=== PATIENT | male | born 2005 | race Caucasian/White ===

== ENCOUNTER 2024-09-29 07:28 | Emergency (ER) | payer OTHER, SELFPAY ==
[2024-09-29 07:28] VITALS: BMI 22.0
[2024-09-29 07:31] VITALS: BP 162/94
--- NOTE | 2024-09-29 08:15 | ED.GENMED ---
History of Present Illness
<Lauren Rich MD, Resident - Last Filed: 09/29/24 11:51>
General
Chief Complaint: Abdominal Symptoms
Source: patient and family
Time Seen by Provider: 09/29/24 07:38
History of Present Illness
History of Present Illness:
This is a 19-year-old male patient with no significant PMH who presents to the ED accompanied by his mother for concern of abdominal pain. He states that he started to have abdominal pain on Sunday that was intermittent, radiating to the back
and associated with nausea. He denies any chills, vomiting or chest pain. A week before the appearance of his abdominal pain, he experienced cold-like symptoms such as sore throat, fever and cough which all subsided without medication but due to
feeling severely nauseous and weak, he had hit his head against the wall. He denies any severe trauma or lacerations to his head but does have mild dizziness. He denies any history of recent travel or diarrhea. He is not currently on any daily
medications. He is currently a college student at [employer].
Past History
<Lauren Rich MD, Resident - Last Filed: 09/29/24 11:51>
Past History
ED Past Medical History: None
ED Past Surgical History: Tonsilectomy and Other (Deviated septum repair, wisdom teeth removal)
Social History
Tobacco: Non-smoker
Alcohol: None
Drug: None
Employment: Student
Review of Systems
<Lauren Rich MD, Resident - Last Filed: 09/29/24 11:51>
Review of Systems
Constitutional: Denies fever or chills
EENT: Reports sore throat
Respiratory: Denies cough
Cardiac: Denies chest pain or palpitations
ABD/GI: Reports abdominal pain and nausea; Denies diarrhea or constipated
Phy Exam
<Lauren Rich MD, Resident - Last Filed: 09/29/24 11:51>
General Physical Exam
General Presentation: well appearing and no apparent distress
Cardiovascular Exam
Cardiovascular Exam: regular rate/rhythm and no murmur
Heart Sounds: normal
Pulmonary Exam
Pulmonary Exam: lungs clear, no respiratory distress and no crackles
Gastrointestinal Exam
Gastrointestinal Exam: soft, non distended and tender (Tenderness in RLQ)
Neurological Exam
Neurological Exam: oriented x3
Musculoskeletal Exam
Musculoskeletal Exam: no edema
Skin Exam
Skin Exam: warm/dry
Psychiatric Exam
Psychiatric Exam: normal mood/affect
Course
<Lauren Rich MD, Resident - Last Filed: 09/29/24 11:51>
Orders/Labs/Results
Orders:
Orders
09/29/24 08:07
Complete Blood Count/With Diff Urgent
Comprehensive Metabolic Panel Urgent
Lipase Urgent
Manual Differential Urgent
09/29/24 08:08
Urinalysis Reflex To Culture Urgent
Date Specimen was Collected: 09/29/24
Time Specimen was Collected: 08:08
09/29/24 08:12
Iohexol [Omnipaque] See Protocol PO NOW STA
09/29/24 08:13
CT Abd/pel W Iv And Oral Contr Urgent
Comment:
Reason For Exam: RLQ abdominal pain
09/29/24 08:36
Monotest Urgent
Abnormal Lab Results
09/29/24
08:07
RBC 4.60 L 10^6/uL
(4.70-6.10)
09/29/24 08:07
09/29/24 08:07
Vital Signs
Initial and Last Documented VS:
Initial Vital Signs
Temp Pulse Resp BP Pulse Ox
98.0 F 102 16 162/94 98
09/29/24 07:31 09/29/24 07:31 09/29/24 07:31 09/29/24 07:31 09/29/24 07:31
Last Documented Vital Signs
Temp Pulse Resp BP Pulse Ox
98.0 F 64 16 125/76 100
09/29/24 07:31 09/29/24 09:33 09/29/24 10:00 09/29/24 09:33 09/29/24 09:33
<Trae Moore, DO - Last Filed: 09/29/24 08:20>
Orders/Labs/Results
Orders:
Orders
09/29/24 08:07
Complete Blood Count/With Diff Urgent
Comprehensive Metabolic Panel Urgent
Lipase Urgent
Manual Differential Urgent
09/29/24 08:08
Urinalysis Reflex To Culture Urgent
Date Specimen was Collected: 09/29/24
Time Specimen was Collected: 08:08
09/29/24 08:12
Iohexol [Omnipaque] See Protocol PO NOW STA
09/29/24 08:13
CT Abd/pel W Iv And Oral Contr Urgent
Comment:
Reason For Exam: RLQ abdominal pain
09/29/24 08:36
Monotest Urgent
Abnormal Lab Results
09/29/24
08:07
RBC 4.60 L 10^6/uL
(4.70-6.10)
09/29/24 08:07
09/29/24 08:07
Vital Signs
Initial and Last Documented VS:
Initial Vital Signs
Temp Pulse Resp BP Pulse Ox
98.0 F 102 16 162/94 98
09/29/24 07:31 09/29/24 07:31 09/29/24 07:31 09/29/24 07:31 09/29/24 07:31
Last Documented Vital Signs
Temp Pulse Resp BP Pulse Ox
98.0 F 64 16 125/76 100
09/29/24 07:31 09/29/24 09:33 09/29/24 10:00 09/29/24 09:33 09/29/24 09:33
<Lauren Rich MD, Resident - Last Filed: 09/29/24 11:51>
*Critical Care Note
Total Time (30-74mins, 75-104mins- exclusive of procedures): Not Applicable
<Lauren Rich MD, Resident - Last Filed: 09/29/24 11:51>
Update Note
Update Note:
CBC/CMP without significant findings. Monospot negative. CT abd showed no acute inflammatory findings. Patient will be discharged home with instructions to follow up with family doctor.
ED Attending Note
<Lauren Rich MD, Resident - Last Filed: 09/29/24 11:51>
-
Portions of this chart may have been created with voice recognition software.� Occasional wrong word or��sound alike� substitutions may have occurred due to the inherent limitations of voice recognition software.
<Trae Moore DO - Last Filed: 09/29/24 08:20>
ED Attending Note
Patient seen and examined by attending physician: Yes
I performed a history and physical exam of patient and discussed management with resident, I reviewed resident's note and agree with documented findings and plan of care.: Yes
ED Attending Note:
I evaluated the patient at bedside. The patient started having viral type of syndrome about a week ago but more recently is been having intermittent waves of nausea with pain primarily in the right lower quadrant. He has only minimal tenderness on
examination. However given the location of the pain will obtain CT imaging.
Discharge Plan
Departure
Patient Disposition: Home (Routine Discharge)
Date of Disposition: 09/29/24
Time of Disposition: 11:45
Patient with high blood pressure during this ER visit?: No
Discharge Problem:
Abdominal pain
Prescriptions:
Discontinued
promethazine 25 mg tablet
25 mg PO Q6H PRN (Reason: nausea and vomiting) Qty: 7 0RF
Referrals:
Simone Do MD [Family Provider] -
Activity Restrictions/Additional Instructions:
If worsening symptoms such as severe abdominal pain or high grade fevers, please return to the ER.
Follow up with family doctor in a week.
Interventions
Interventions:
*Risk Screen - Suicide Last Done: 09/29/24 07:31
*General Assessment Last Done: 09/29/24 08:11
*Neglect/Abuse Screening Last Done: 09/29/24 07:31
ED- Fall Risk Assessment Last Done: 09/29/24 11:06
*ED COVID-19 Vaccine History Last Done: 09/29/24 08:11
TB-Abhtnc-[id number] Assessment Last Done: 09/29/24 07:38
Discharge Date and Time
Print Language: [id number]
[2024-09-29 08:25] LABS: Urine Albumin Negative (Neg - Trace); Urine Bilirubin Negative (Negative); Urine Character Clear (Clear); Urine Color Yellow; Urine Glucose Negative (Negative); Urine Ketone Negative (Negative); Urine Leukocyte Negative (Negative); Urine Nitrite Negative (Negative); Urine Occult Blood Negative (Negative); Urine Urobilinogen Negative (Neg - 1+)
[2024-09-29 08:27] LABS: Hematocrit 42.3 % (39.0-52.0); Hemoglobin 14.1 g/dL (13.0-18.0); Mean Corp Hgb Conc. 33.3 g/dL (33.0-37.0); Mean Corpuscular Hgb 30.7 pg (27.0-31.0); Mean Platelet Volume 9.2 fL (7.4-10.4); Platelet Count 234 10^3/uL (130-400); Red Cell Dist. Width 11.9 % (11.5-14.5); White Blood Cell Count 5.7 10^3/uL (4.8-10.8)
[2024-09-29] MEDS: OMNIPAQUE 50 ML PO (08:35)
[2024-09-29 08:36] LABS: ALT (SGPT) 18 U/L (0-50); AST (SGOT) 25 U/L (17-59); Albumin 4.3 g/dl (3.5-5.0); Alkaline Phosphatase 44 U/L (38-126); Blood Urea Nitrogen 14 mg/dl (9-20); Calcium 9.2 mg/dl (8.4-10.2); Carbon Dioxide 27 mmol/L (22-30); Chloride 105 mmol/L (98-107); Estimated Creatinine Clearance > 125 ml/min; Glucose 99 mg/dl (70-99); Lipase 58 U/L (23-300); Sodium 143 mmol/L (135-145); Total Bilirubin 0.3 mg/dl (0.2-1.3); Total Protein 7.1 g/dl (6.3-8.2); eGFR > 60.00
[2024-09-29 09:15] LABS: Monotest Negative (Negative)
[2024-09-29 09:26] LABS: Absolute Neutrophils -Man Diff 2.5 10^3/uL (1.4-6.5); Atypical Lymphocytes 7 %; Band Neutrophils 1 % (0-3); Eosinophils 2 % (0-6); Lymphocytes 36 % (20-51); Metamyelocytes 2 % (-); Monocytes 9 % (2-9); Normal RBC Morphology Yes; Platelets Checked Yes; Segmented Neutrophils 43 % (42-75); Total Cells Counted 100
[2024-09-29 09:33] VITALS: BP 125/76
[2024-09-29 11:54] VITALS: BP 114/62
== END 2024-09-29 11:55 | disposition home or self-care (01) ==
LOC: EMR 07:28
PROVIDERS: Student in an Organized Health Care Education/Training Program; EMERGENCY PHYSICIAN Emergency Medicine; FAMILY PHYSICIAN Family Medicine
DX: R10.31 Right lower quadrant pain (principal)
CPT/HCPCS: 99285; 74177; 80053; 81003; 83690; 85025; 86308; Q9967

== ENCOUNTER → 2025-04-27 15:50 | Outpatient (REF) | payer OTHER, SELFPAY | LOC: HWRCS 15:50 | PROVIDERS: ATTENDING PHYSICIAN Internal Medicine Cardiovascular Disease; FAMILY PHYSICIAN Student in an Organized Health Care Education/Training Program | DX: R00.2 Palpitations (principal); R00.0 Tachycardia, unspecified; R42 Dizziness and giddiness | CPT/HCPCS: 93306 ==

== ENCOUNTER → 2025-05-26 15:20 | Outpatient (REF) | payer OTHER, SELFPAY | LOC: HWRAD 15:20 | PROVIDERS: ATTENDING PHYSICIAN Student in an Organized Health Care Education/Training Program | DX: R10.13 Epigastric pain (principal); R11.0 Nausea; R14.2 Eructation; R00.2 Palpitations | CPT/HCPCS: 76700 ==

== ENCOUNTER → 2025-08-07 09:16 | Outpatient (REF) | payer OTHER, SELFPAY | LOC: HWRAD 09:16 | PROVIDERS: ATTENDING PHYSICIAN Physician Assistant | DX: R35.0 Frequency of micturition (principal) | CPT/HCPCS: 76770 ==